=== PATIENT | male | born 1965 | race Caucasian/White ===

== ENCOUNTER → 2016-12-15 | Outpatient (CLI) | payer BC ==
[~2016-12-15] MED LIST: CITA10TA8 PO; FEXO1TAB46 PO; GLUC10007; TADA20TA PO; XNX25 PO
[2016-12-15 08:24] LABS: ALT/SGPT 65 U/L (12-78); BLOOD UREA NITROGEN 15 mg/dl (7-18); BUN/CREATININE RATIO 13.7 (10-20); CARBON DIOXIDE 29 mmol/L (21-32); CHLORIDE 106 mmol/L (98-107); CHOLESTEROL 181 mg/dl (0-200); GLUCOSE 122 mg/dl (70-99); POTASSIUM 3.9 mmol/L (3.5-5.1); SODIUM 143 mmol/L (136-145); TRIGLYCERIDES 228 mg/dl (0-150); VERY LOW DENSITY LIPOPROT CALC 46 mg/dl
[2016-12-15 08:26] LABS: ALB/GLOB RATIO 1.1 (0.9-2); ALKALINE PHOSPHATASE 64 U/L (45-117); AST/SGOT 26 U/L (15-37); CHOLESTEROL/HDL RATIO 4.5; HDL CHOLESTEROL 40 mg/dl; LDL CHOLESTEROL CALCULATED 95 mg/dl
[2016-12-15 08:36] LABS: ESTIMATED AVERAGE GLUCOSE 128 mg/dl; HA1C FLAG Normal (Normal)
[2016-12-15 08:53] LABS: CALCIUM 9.3 mg/dl (8.5-10.1)
== END | disposition home or self-care (01) ==
LOC: C.LAB 07:16
PROVIDERS: ATTEND Nurse Practitioner Family
DX: E66.3 Overweight (principal); Z13.220 Encounter for screening for lipoid disorders; R73.01 Impaired fasting glucose